=== PATIENT | male | born 1970 | race African-American/Black ===

== ENCOUNTER → 2017-05-14 | Outpatient (CLI) | payer BC ==
[~2017-05-14] MED LIST: FLEXERIL PO; NORCO 5-325 TA1 EACH PO
== END ==
LOC: RAD 11:05
DX: M94.262 Chondromalacia, left knee (principal)

== ENCOUNTER → 2019-05-23 | Outpatient (CLI) | payer BC | LOC: RAD 12:18 | DX: M51.35 Other intervertebral disc degeneration, thoracolumbar region (principal); M51.37 Other intervertebral disc degeneration, lumbosacral region; M43.16 Spondylolisthesis, lumbar region ==

== ENCOUNTER → 2019-07-19 | Outpatient (CLI) | payer OTHER | LOC: CAT 08:41 | DX: Z13.6 Encounter for screening for cardiovascular disorders (principal); E78.00 Pure hypercholesterolemia, unspecified; I25.10 Atherosclerotic heart disease of native coronary artery without angina pectoris ==